=== PATIENT | female | born 1950 | race Caucasian/White ===

== ENCOUNTER → 2017-02-12 | Outpatient (CLI) | payer BC ==
--- NOTE | 2017-02-12 15:45 | DIAGNOSTIC IMAGING REPORT ---
LEFT FOOT MIN 3 VIEWS ROUTINE CLINICAL HISTORY: M77.42 LEFT FOOT PAIN COMPARISON: None. DISCUSSION: No fractures or dislocations are visualized. There are no erosive or destructive changes. IMPRESSION: Normal conventional radiographic evaluation of the left foot for age Electronically signed by: Jass Hutton M.D. 02/12/2017 3:43 PM Dictated Date/Time: 02/12/2017 3:42 PM
== END | disposition home or self-care (01) ==
LOC: C.RAD1850 15:25
PROVIDERS: ATTEND Physician Assistant
DX: M77.42 Metatarsalgia, left foot (principal)

== ENCOUNTER → 2017-06-10 | Outpatient (CLI) | payer BC ==
--- NOTE | 2017-06-10 12:59 | DIAGNOSTIC IMAGING REPORT ---
L-SPINE MIN 4 VIEWS ROUTINE CLINICAL HISTORY: 67 years-old Female presenting with LOW BACK PAIN. TECHNIQUE: Frontal, bilateral oblique, lateral, and coned in lateral views lumbar spine were obtained. COMPARISON: None. FINDINGS: Normal lumbar lordosis. 6 mm of grade 1 anterolisthesis of L5 on S1 with bilateral pars defects suspected. Vertebral bodies maintain otherwise normal height and alignment. Intervertebral disc height loss at L4-5 noted. Mild osseous neural foraminal narrowing at L5-S1. The remaining levels demonstrate widely patent neural foramina. No radiographic evidence of acute fracture or subluxation. Obstructive bowel gas pattern. IMPRESSION: 1. 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 2. Degenerative changes at L4-5. Electronically signed by: Skip Salcedo M.D. 06/10/2017 12:58 PM Dictated Date/Time: 06/10/2017 12:56 PM
== END | disposition home or self-care (01) ==
LOC: C.RAD1850 12:06
PROVIDERS: ATTEND Family Medicine
DX: M43.17 Spondylolisthesis, lumbosacral region (principal); M89.8X8 Other specified disorders of bone, other site

== ENCOUNTER → 2017-06-12 | Outpatient (CLI) | payer BC ==
--- NOTE | 2017-06-12 14:34 | DIAGNOSTIC IMAGING REPORT ---
PELVIC ULTRASOUND, TRANSABDOMINAL AND TRANSVAGINAL HISTORY: PELVIC PAIN COMPARISON: Pelvis ultrasound 04/20/2012. FINDINGS: Uterus: Unremarkable. Endometrial stripe: 5 mm in thickness. Right ovary: Normal in size and demonstrates normal color flow. Left ovary: Normal in size and demonstrates normal color flow. Miscellaneous:No pelvic free fluid. IMPRESSION: No significant abnormality identified within the pelvis. Electronically signed by: Yao Bardales M.D. 06/12/2017 2:33 PM Dictated Date/Time: 06/12/2017 2:31 PM
== END | disposition home or self-care (01) ==
LOC: C.ULTR 13:42
PROVIDERS: ATTEND Family Medicine
DX: R10.2 Pelvic and perineal pain (principal)

== ENCOUNTER → 2017-09-21 | Outpatient (CLI) | payer BC ==
--- NOTE | 2017-09-22 07:51 | MAMMOGRAPHY REPORT ---
BILATERAL DIGITAL SCREENING MAMMOGRAM TOMOSYNTHESIS WITH CAD: 09/21/2017 CLINICAL HISTORY: Routine screening. Patient has no complaints. TECHNIQUE: Breast tomosynthesis in addition to standard 2D mammography was performed. Current study was also evaluated with a Computer Aided Detection (CAD) system. COMPARISON: Comparison is made to exams dated: 09/19/2016 mammogram, 09/26/2015 mammogram, 09/26/2015 u ltrasound, 09/18/2015 mammogram, 08/23/2014 mammogram, and 08/22/2013 mammogram - [facility]. BREAST COMPOSITION: There are scattered areas of fibroglandular density in both breasts. FINDINGS: There are multiple bilateral circumscribed subcentimeter masses scattered throughout the br easts, which is a typically benign mammographic pattern. There are stable groupings of punctate micr ocalcifications in each upper outer quadrant. No new suspicious mass, architectural distortion or cl uster of suspicious microcalcifications is seen. IMPRESSION: ACR BI-RADS CATEGORY 1: NEGATIVE There is no mammographic evidence of malignancy. A 1 year screening mammogram is recommended. The pa tient will receive written notification of the results. Approximately 10% of breast cancers are not detected with mammography. A negative mammographic report should not delay biopsy if a clinically suggestive mass is present. Nury Dodson M.D. ay/:09/21/2017 16:50:56 [employer]crete Float Maker: Olena Pineda, [facility] letter sent: Normal 1/2 BI-RADS Code: ACR BI-RADS Category 1: Negative
== END | disposition home or self-care (01) ==
LOC: C.MAMM 10:50
PROVIDERS: ATTEND Family Medicine
DX: Z12.31 Encounter for screening mammogram for malignant neoplasm of breast (principal)